=== PATIENT | male | born 1965 | race Caucasian/White ===

== ENCOUNTER 2019-09-11 06:28 | Day surgery (SDC) | payer OTHER ==
[~2019-09-11] VITALS: Ht 177.8 cm; Wt 186.4 kg
[~2019-09-11 06:28] MED LIST: SODIUM CHLORIDE 0.9% 1,000 ML ONE
[2019-09-11] MEDS ORDERED: ALBUTEROL SULFATE 2.5 MG/0.5 ML NEB SOLUTION NEB ONE (06:29)
[2019-09-11] MEDS ORDERED: LIDOCAINE 4% 50 ML SOLUTION TP ONE (06:29)
[2019-09-11] MEDS ORDERED: BENZOCAINE 20% 50 MCG/SPRAY 57 GM TP ONE (06:29)
[2019-09-11] MEDS ORDERED: LIDOCAINE 2% 30 ML JELLY TP ONE (06:29)
[2019-09-11] MEDS ORDERED: SODIUM CHLORIDE 0.9% 1,000 ML IV ONE (07:00)
[2019-09-11 07:29] LABS: GLUCOMETER DEV NAME(LOC) SDS.; GLUCOSE,POINT OF CARE 129 MG/DL (70-110)
[2019-09-11] MEDS ORDERED: LEVO500 PO (07:37)
[2019-09-11] MEDS ORDERED: OMEP20 PO (07:37)
[2019-09-11] MEDS ORDERED: CETI10TA59 PO (07:37)
[2019-09-11] MEDS ORDERED: FLUT16H NASAL (07:37)
[2019-09-11] MEDS ORDERED: CHL25 PO (07:37)
[2019-09-11] MEDS ORDERED: AMLO10TA7 PO (07:37)
[2019-09-11] MEDS ORDERED: MONT10TA21 PO (07:37)
[2019-09-11] MEDS ORDERED: FLUT220HFA IH (07:37)
[2019-09-11] MEDS ORDERED: ALBU8HFA IH (07:37)
[2019-09-11] MEDS ORDERED: FentaNYL CITRATE-PF 100 MCG/2 ML VIAL ONE (08:06)
[2019-09-11] MEDS ORDERED: MIDAZOLAM HCL 2 MG/2 ML VIAL ONE (08:06)
[2019-09-11] MEDS ORDERED: MethylPREDNISolone SOD SUCC 125 MG/2 ML VIAL ONE (08:48)
[2019-09-11] MEDS ORDERED: MethylPREDNISolone SOD SUCC 125 MG/2 ML VIAL IVP ONE (09:00)
[2019-09-11] MEDS ORDERED: OXYGEN THERAPY IH SCH (20:00)
== END 2019-09-11 10:35 | disposition home or self-care (01) ==
LOC: SURGERY 06:28
PROVIDERS: ATTEND Internal Medicine Critical Care Medicine
DX: R05 Cough (principal); R91.1 Solitary pulmonary nodule; J34.89 Other specified disorders of nose and nasal sinuses; J98.8 Other specified respiratory disorders; J38.4 Edema of larynx; B37.0 Candidal stomatitis; Z79.899 Other long term (current) drug therapy; R19.09 Other intra-abdominal and pelvic swelling, mass and lump
CPT/HCPCS: 31623; 31624; 71045; 82962; 87015; 87070; 87101; 87205; 87206; 87220; 88108; 88184; 88185; 88312; J2250; J2930; J3010; J7030

== ENCOUNTER 2023-07-07 06:06 | Day surgery (SDC) | payer OTHER ==
[~2023-07-07] VITALS: Ht 175.3 cm; Wt 172.4 kg
[~2023-07-07 06:06] MED LIST changes: +ALBU18HF12 IH; +AMLO-258 PO; +CETI-450 PO; +CHL25 PO; +FLUT12AE18 IH; +FLUT16SP NASAL; +LEVO-72 PO; +MONT-35 PO; +OMEP20 PO; -SODIUM CHLORIDE 0.9% 1,000 ML ONE
[2023-07-07] MEDS ORDERED: LIDOCAINE 2% 11 ML JELLY TP ONE (06:07)
[2023-07-07] MEDS ORDERED: BENZOCAINE 20% 50 MCG/SPRAY 57 GM TP ONE (06:07)
[2023-07-07] MEDS ORDERED: ALBUTEROL SULFATE 2.5 MG/0.5 ML NEB SOLUTION NEB ONE (06:07)
[2023-07-07] MEDS ORDERED: LIDOCAINE 4% 50 ML SOLUTION TP ONE (06:07)
[2023-07-07] MEDS ORDERED: SODIUM CHLORIDE 0.9% 1,000 ML IV ONE (07:00)
[2023-07-07] MEDS ORDERED: SODIUM CHLORIDE 0.9% 1,000 ML ONE (07:19)
[2023-07-07] MEDS ORDERED: MIDAZOLAM HCL 2 MG/2 ML VIAL ONE (08:14)
[2023-07-07] MEDS ORDERED: FentaNYL CITRATE PF 100 MCG/2 ML VIAL ONE (08:14)
[2023-07-07] MEDS ORDERED: LEVO50 PO (08:14)
[2023-07-07] MEDS ORDERED: MethylPREDNISolone SOD SUCC 125 MG/2 ML VIAL IVP ONE (09:00)
[2023-07-07 09:04] VITALS: PULSE 84; RESP 18; O2SAT 94
[2023-07-07] MEDS ORDERED: MethylPREDNISolone SOD SUCC 125 MG/2 ML VIAL ONE (09:04)
== END 2023-07-07 12:15 | disposition home or self-care (01) ==
LOC: SURGERY 06:06
PROVIDERS: ATTEND Internal Medicine Critical Care Medicine
DX: R05.8 Other specified cough (principal); R91.1 Solitary pulmonary nodule; J98.09 Other diseases of bronchus, not elsewhere classified; Z98.890 Other specified postprocedural states
CPT/HCPCS: 87206; 87101; 87220; 87070; 31623; 31624; 94640; 71045; 87015; 99152; J3010; J2250; J2930; Q9967; J7030; J7613; Z7610